=== PATIENT | female | born 1950 ===

== ENCOUNTER 2024-01-05 04:35 | Day surgery (SDC) | payer OTHER ==
[2023-12-28 16:52] VITALS: BMI 39.5
[2024-01-05] MEDS ORDERED: LIDOCAINE HCL 1%, 10 MG/ML (20ML VIAL) ONE ×3 (10:49→13:01)
[2024-01-05] MEDS ORDERED: BUPIVACAINE HCL/PF 0.5% (5MG/ML) 10 ML VIAL ONE ×2 (10:50→12:14)
[2024-01-05] MEDS ORDERED: DEXMEDETOMIDINE HCL 200 MCG/2 ML IVPB ONE (12:28)
[2024-01-05] MEDS ORDERED: ACETAMINOPHEN INJECTION 100 ML IVPB ONE (12:28)
[2024-01-05] MEDS ORDERED: SUCCINYLCHOLINE CHLORIDE 200 MG/10 ML SYRINGE ONE (12:31)
[2024-01-05] MEDS ORDERED: ONDANSETRON 4 MG/2 ML VIAL ONE (12:31)
[2024-01-05] MEDS ORDERED: MIDAZOLAM HCL 2 MG/2 ML SINGLE DOSE VIAL ONE (12:32)
[2024-01-05] MEDS ORDERED: FENTANYL CITRATE/PF 50 MCG/ML VIAL ONE (12:36)
[2024-01-05] MEDS ORDERED: PROPOFOL 20 ML ONE (12:37)
[2024-01-05] MEDS ORDERED: LIDOCAINE HCL/PF 2% SDV 5ML VIAL ONE (12:41)
[2024-01-05] MEDS ORDERED: GENTAMICIN SO4 80 MG/2 ML VIAL ONE (13:05)
[2024-01-05] MEDS: LIDOCAINE HCL 1%, 10 MG/ML (20ML VIAL) INF ONE (13:32)
[2024-01-05] MEDS: BUPIVACAINE HCL/PF 0.5% (5 MG/ML) 30 ML VIAL IJ ONE (13:33)
[2024-01-05 14:18] VITALS: TEMP 97.3
[2024-01-05 14:32] VITALS: BP 102/57; PULSE 62; RESP 20
== END 2024-01-05 15:19 | disposition home or self-care (01) ==
LOC: JASU-SURG 04:35
PROVIDERS: ATTEND Podiatrist Foot Surgery
PROC: 0YPB0YZ Removal of Other Device from Left Lower Extremity, Open Approach (ICD-10-PCS; principal; 2024-01-05 12:00)
DX: T84.84XA Pain due to internal orthopedic prosthetic devices, implants and grafts, initial encounter (principal)
CPT/HCPCS: 76000-TC-FY; 82962; 88304-TC; 88311-TC; 94760; J0131